=== PATIENT | female | born 1945 | race Caucasian/White ===

== ENCOUNTER 2017-06-25 15:42 | Emergency (ER) | payer MEDICARE, OTHER ==
[2017-06-25] MEDS ORDERED: methylPREDNISolone Sodium Succinate 125 MG/2 ML SDV IVPUSH ONE (16:32)
[2017-06-25] MEDS ORDERED: Sodium Chloride 0.9% 10 ML Syringe FLUSH PRN (16:32)
[2017-06-25] MEDS ORDERED: diphenhydrAMINE 50 MG/ML SDV IVPUSH ONE (16:35)
[2017-06-25] MEDS ORDERED: Ranitidine 15 MG/ML Syrup 10 ML UD Cup PO ONE (16:37)
[2017-06-25] MEDS ORDERED: Famotidine 20 MG/2 ML SDV IVPUSH ONE (16:38)
[2017-06-25] MEDS ORDERED: Famotidine 20 MG/2 ML SDV ONE (16:44)
[2017-06-25] MEDS ORDERED: Ranitidine 15 MG/ML Syrup 10 ML UD Cup PO SCH (16:45)
--- NOTE | 2017-06-25 17:01 | EDM.PDOC ---
ED HPI GENERAL MEDICAL PROBLEM - General Chief Complaint: Bite:Animal, Insect Stated Complaint: BEE STING/ALLERGIC REATION Time Seen by Provider: 06/25/17 16:00 Source of Information: Reports: Patient History Limitations: Reports: No Limitations - History of Present Illness INITIAL COMMENTS - FREE TEXT/NARRATIVE: 72-year-old female presents for evaluation and treatment of a bee sting. Reportedly the sting occurred around 1500 today. She reports that it occurred on her right anterior, distal forearm. She states that she immediately developed swelling, tenderness and erythema to the arm. She reports that the erythema streaking up her arm and into her axilla. Reports that her right axilla is very tender and she feels swollen lymph nodes. She also reports redness and swelling to her right hand. She states that she has been stung by bees on multiple occasions and has never had a reaction. She is complaining of a "tickle" in her throat but denies any throat swelling, cough, chest pain or difficulty breathing. Patient has been icing the area on her distal forearm and she did take one tablet Benadryl prior to arrival in the ER. 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(s) (25mg benadryl) Wrist Pain Score (Numeric/FACES): 3 - Related Data Allergies Allergy/AdvReac Type Severity Reaction Status Date / Time No Known Allergies Allergy Verified 06/25/17 15:55 Home Meds: Home Meds EPINEPHrine [Epipen] 0.3 mg IM ASDIRECTED PRN #2 pen 06/25/17 [Rx] Prednisone [IMW: predniSONE] 20 mg PO WITHBREAKFAST #5 tab 06/25/17 [Rx] Ranitidine HCl [Zantac 75] 75 mg PO DAILY #5 tablet 06/25/17 [Rx] Past Medical History HEENT History: Reports: Impaired Vision - Past Surgical History HEENT Surgical History: Reports: Cataract Surgery, Eye Surgery Social & Family History - Family History Family Medical History: Noncontributory - Tobacco Use Smoking Status *Q: Never Smoker - Recreational Drug Use Recreational Drug Use: No ED ROS GENERAL - Review of Systems Review Of Systems: See Below HEENT: Reports: Other (reports a "tickle" in her throat). Denies: Throat Pain, Throat Swelling Respiratory: Denies: Shortness of Breath, Cough Cardiovascular: Denies: Chest Pain GI/Abdominal: Denies: Nausea, Vomiting Musculoskeletal: Reports: Arm Pain (right ) Skin: Reports: Erythema (right distal forearm, right vnetral hand, right axilla) , Lumps (right distal forearm) Neurological: Denies: Numbness, Tingling Hematologic/Lymphatic: Reports: Swollen Glands (right axilla) ED EXAM, ANIMAL BITE - Physical Exam Exam: See Below Exam Limited By: No Limitations General Appearance: Alert, WD/WN, No Apparent Distress Ears: Normal External Exam Nose: Normal Inspection Throat/Mouth: Normal Inspection, Normal Lips, Normal Voice, No Airway Compromise , Other (no uvula swelling) Neck: Normal Inspection, Supple, Non-Tender Respiratory/Chest: No Respiratory Distress, Lungs Clear, Normal Breath Sounds Cardiovascular: Normal Peripheral Pulses, Regular Rate, Rhythm, No Murmur Peripheral Pulses: 2+: Radial (L), Radial (R) Extremities: Increased Warmth (right distal forearm), Redness (right distal forearm) Neurological: Alert, Oriented, Normal Cognition Psychiatric: Normal Affect, Normal Mood Skin Exam: Normal Color, Warm/Dry, Other (swollen, erythematous area to right distal forearm approximately 15cm x 8 cm with an erythematous streak to the right axilla) Lymphatic: Adenopathy (right axilla) Course - Vital Signs Last Recorded V/S: Last Vital Signs Temp 37.1 C 06/25/17 15:51 Pulse 60 06/25/17 18:00 Resp 18 06/25/17 18:00 BP 147/65 H 06/25/17 18:00 Pulse Ox 99 06/25/17 18:00 - Orders/Labs/Meds Meds: Medications Discontinued Medications Generic Name Dose Route Start Last Admin Trade Name Freq PRN Reason Stop Dose Admin Diphenhydramine HCl 25 mg 06/25/17 16:35 06/25/17 16:44 Benadryl IVPUSH 06/25/17 16:36 25 mg ONETIME ONE Administration Famotidine 20 mg 06/25/17 16:38 06/25/17 16:45 Pepcid IVPUSH 06/25/17 16:39 20 mg ONETIME ONE Administration Famotidine Confirm 06/25/17 16:44 06/25/17 16:46 Pepcid Administered 06/25/17 16:45 Not Given Dose 20 mg .ROUTE .STK-MED ONE Methylprednisolone Sodium Succinate 125 mg 06/25/17 16:32 06/25/17 16:45 Solu-Medrol IVPUSH 06/25/17 16:33 125 mg ONETIME ONE Administration Ranitidine HCl 150 mg 06/25/17 16:45 Zantac PO BID MING Ranitidine HCl 150 mg 06/25/17 16:37 06/25/17 16:39 Zantac PO 06/25/17 16:38 Not Given BID ONE Sodium Chloride 10 ml 06/25/17 16:32 06/25/17 16:45 Saline Flush FLUSH 10 ml ASDIRECTED PRN Administration Keep Vein Open - Re-Assessments/Exams Free Text/Narrative Re-Assessment/Exam: 06/25/17 18:00 Patient is improving. Still has a slight "tickle" in her throat. Lymphangitis has resolved. Swollen area to the right distal forearm significantly improved. Swelling to the right hand significantly improved. We'll continue a short time longer. Plan will be to discharge home. 06/25/17 18:22 "Tickle "in her throat has completely resolved. Patient continues to improve. I will discharge her home. I'm concerned about the significant allergic reaction she had tonight and the sensation in her throat. She [place] live approximately [place] out of town. I will prescribe her an EpiPen in case she has an allergic reaction in the tissue that requires further intervention. Discharge instructions as documented. Departure - Departure Time of Disposition: 18:20 Disposition: Home, Self-Care 01 Condition: Fair Clinical Impression: Allergic reaction Qualifiers: Encounter type: initial encounter Qualified Code(s): T78.40XA - Allergy, unspecified, initial encounter - Discharge Information Prescriptions: EPINEPHrine [Epipen] 0.3 mg IM ASDIRECTED PRN #2 pen PRN Reason: Shortness Of Breath Prednisone [IMW: predniSONE] 20 mg PO WITHBREAKFAST #5 tab Ranitidine HCl [Zantac 75] 75 mg PO DAILY #5 tablet Instructions: Bee, Wasp, or Hornet Sting Referrals: PCP,None [Primary Care Provider] - Erna Paul NP [ED Midlevel Provider] - Forms: ED Department Discharge Additional Instructions: Take an antihistamine such as benardyl 1 tab PO every 6 hours. You may instead try a newer antihistamine such as clairtin or zytrec as directed. Take the prednisone as prescribed. 1 tab PO daily x 5 days. Given steroid in the ER. Start you RX tomorrow. Take zantac daily as prescribed. Follow-up with Erna Paul this week. Call [phone] to schedule with her. Use the epipen if you are stung and experience shortness of breath, throat swelling or closure. Continue to ice the sore areas. Please return to the ER should your symptoms change or worsen.
[2017-06-25 18:17] VITALS: BP 147/65
== END 2017-06-25 18:05 | disposition home or self-care (01) ==
LOC: JD.ED 15:42
DX: T63.441A Toxic effect of venom of bees, accidental (unintentional), initial encounter (principal); Z98.49 Cataract extraction status, unspecified eye; Z79.899 Other long term (current) drug therapy
CPT/HCPCS: 96374; 96375; 99283; J1200; J2930; J7050; 99284

== ENCOUNTER 2023-04-06 16:58 | Emergency (ER) | payer MEDICARE, OTHER ==
[2023-04-06 17:13] VITALS: BP 151/78; PULSE 78
== END 2023-04-06 18:08 | disposition home or self-care (01) ==
LOC: JD.ED 16:58
DX: S82.425A Nondisplaced transverse fracture of shaft of left fibula, initial encounter for closed fracture (principal); W23.0XXA Caught, crushed, jammed, or pinched between moving objects, initial encounter; Y92.009 Unspecified place in unspecified non-institutional (private) residence as the place of occurrence of the external cause
CPT/HCPCS: 99283